=== PATIENT | male | born 1985 | race Caucasian/White ===

== ENCOUNTER 2020-07-19 20:20 | Inpatient (IN) | payer OTHER, SELFPAY ==
[~2020-07-19] VITALS: Ht 180.3 cm; Wt 125.2 kg
--- NOTE | 2020-07-19 00:36 | NUR ---
RECEIVED REPORT OVER THE PHONE FORM ARELI ER NURSE, PT IN STABLE CONDITION.
[2020-07-19 20:43] VITALS: BP 144/76
--- NOTE | 2020-07-19 20:48 | NUR ---
PT TAKEN TO BED 6
--- NOTE | 2020-07-19 20:52 | NUR ---
35 Y/O MALE CAME TO THE ED C/O EPIGASTRIC PAIN. PT STATES "I HAVE BEEN HAVING SHARP ABDOMINAL PAIN THAT RADIATES TO THE BACK OF 12/19 SINCE THIS MORNING." PT DENIES ANY NAUSEA, VOMITTING AND DIARRHEA. SKIN IS PINK/WARM/DRY; AAOX4 WITH EVEN AND STEADY GAIT; LUNGS CLEAR BL; HR EVEN AND REGULAR; PT DENIES ANY FEVER, CP, SOB, OR COUGH AT THIS TIME; VSS; PATIENT POSITIONED FOR COMFORT; HOB ELEVATED; BEDRAILS UP X2; BED DOWN. ER MD MADE AWARE OF PT STATUS. PMH: DENIES NKA
--- NOTE | 2020-07-19 22:03 | NUR ---
ERMD AT BEDSIDE EXAMINING PT
[2020-07-19] MEDS ORDERED: FAMOTIDINE 20 MG/2 ML VIAL IVP ONE (22:10)
[2020-07-19] MEDS ORDERED: KETOROLAC 15 MG/ML VIAL IVP ONE (22:10)
[2020-07-19] MEDS ORDERED: ONDANSETRON 4 MG/2 ML VIAL IVP ONE (22:10)
--- NOTE | 2020-07-19 22:19 | NUR ---
Ultrasound at bedside.
[2020-07-19 22:41] LABS: APPEARANCE,URINE CLEAR (CLEAR); BILIRUBIN,URINE 1+ (NEGATIVE); BLOOD, URINE NEGATIVE (NEGATIVE); COLOR,URINE YELLOW (YELLOW); LEUKOCYTE ESTERASE ,URINE NEGATIVE (NEGATIVE); NITRITE, URINE NEGATIVE (NEGATIVE); UGLUCOSE NEGATIVE (NEGATIVE)
[2020-07-19 22:44] LABS: BASOPHILS % (AUTO) 0.4 % (0.0-2.0); EOSINOPHILS # (AUTO) 0.1 K/uL (0-0.4); EOSINOPHILS % (AUTO) 1.5 % (0.0-4.0); HEMATOCRIT 41.9 % (36-52); HEMOGLOBIN 14.2 g/dL (12.0-18.0); LYMPHOCYTES # (AUTO) 2.1 K/uL (2.0-11.5); LYMPHOCYTES % (AUTO) 28.1 % (20.5-51.1); MEAN CORPUSCULAR HEMOGLOBIN 30 pg (27-31); MEAN CORPUSCULAR HGB CONC 34 g/dL (33-37); MEAN CORPUSCULAR VOLUME 87.5 fL (80-94); MONOCYTES # (AUTO) 0.5 K/uL (0.8-1.0); MONOCYTES % (AUTO) 6.2 % (1.7-9.3); NEUTROPHILS # (AUTO) 4.7 K/uL (1.8-7.7); NEUTROPHILS % (AUTO) 63.8 % (42.2-75.2); PLATELET COUNT (AUTO) 257 K/uL (140-450); RED BLOOD CELL COUNT(AUTO) 4.79 MIL/uL (4.20-6.10); RED CELL DISTRIBUTION WIDTH 13.6 % (11.6-13.7); WHITE BLOOD COUNT (AUTO) 7.4 K/uL (4.8-10.8)
--- NOTE | 2020-07-19 22:50 | NUR ---
EKG PERFORMED AT BEDSIDE. EKG READS SINUS RHYTHM @ 58
[2020-07-19] MEDS: NACL 0.9% 1,000 ML IV SCH (23:02)
[2020-07-19 23:03] LABS: ALBUMIN 4.2 g/dL (3.4-5.0); CARBON DIOXIDE 29.8 mmol/L (21-32); CREATININE 0.9 mg/dL (0.6-1.3); POTASSIUM 3.8 mmol/L (3.5-5.1); TOTAL BILIRUBIN 0.4 mg/dL (0.0-1.0)
[2020-07-19] MEDS ORDERED: NACL 0.9% 1,000 ML IV ONE (23:55)
[2020-07-19] MEDS ORDERED: MORPHINE SULFATE 4 MG/ML SYR IVP PRN (23:55)
[2020-07-19] MEDS ORDERED: MORPHINE SULFATE 2 MG/ML SYR IVP PRN (23:55)
[2020-07-20] MEDS: NACL 0.9% 1,000 ML IV SCH ×4 (00:20→22:07)
--- NOTE | 2020-07-20 00:59 | NUR ---
PT TRANSPORTED TO [facility] FLOOR, RM 111B IN STABLE CONDITION.
--- NOTE | 2020-07-20 01:15 | NUR ---
PT BROUGHT UP BY W/C TO ROOM 111 AND WAS ABLE TO AMBULATE TO BED B. PT IS AOX4 UPPER SORBIAN SPEAKING AND ON ROOM AIR . PT STATES HIS SKIN IS INTACT AND HE HAS NO PREVIOUS HEALTH HISTORY. HE HAS A LEFT AC 20 GUAGE INTACT AND ASYMPTOMATIC. MRSA SWAB DONE V/S FOLLOWS: T 97.7 P 63 R 18 B/P 124/71 02 98%.PT DENIES PAIN AT THIS TIME. HE WAS ORIENTED TO ROOM, BED AND REMOTE CONTROL. ALL UNIVERSAL PRECAUTIONS IN PLACE.
--- NOTE | 2020-07-20 01:30 | NUR ---
PT STARTED ON ORDERED NORMAL SALINE AT 140 MLS/HR. IV SITE ON LAC FLUSHED PATENT AND IS ASYMPTOMATIC. ALL UNIVERSAL FALLS PRECAUTIONS IN PLACE.
[2020-07-20 02:44] VITALS: BP 124/71
--- NOTE | 2020-07-20 02:51 | NUR ---
ROUNDS DONE, PT IN BED ASLEEP, ALL UNIVERSAL FALLS PRECAUTIONS IN PLACE.
--- NOTE | 2020-07-20 04:00 | NUR ---
PT IN BED AWAKE NO C/O VOICED V/S FOLLOWS: T 97 P 57 R 18 B/P 112/67 02 99% ON ROOM AIR. ALL UNIVERSAL FALLS PRECAUTIONS IN PLACE.
--- NOTE | 2020-07-20 05:00 | NUR ---
PT LYING IN BED AWAKE, HE HAS NO C/O VOICED AT THIS TIME, ALL UNIVERSAL PRECAUTIONS IN PLACE.
[2020-07-20 08:00] VITALS: BP 128/68
--- NOTE | 2020-07-20 08:02 | NUR ---
RECEIVED REPORT FORM CHOCOLATE PACKER NURSE. PATIENT ALERT AND ORIENTED X 4. PATIENT IS AWAKE AT BED RESPIRATION EVEN AND UNLABORED AT ROOM AIR. IV SITE LAC 20 G IVF NS @ 140 M/H. PT IS NPO. BED IN LOWER POSITION. CALL LIGHT WITHIN REACH. PT IS STABLE AT THIS TIME.WILL CONTINUE TO MONITOR PATIENT.
[2020-07-20] MEDS ORDERED: ZOLPIDEM 5 MG TAB PO PRN (08:05)
[2020-07-20] MEDS ORDERED: POTASSIUM CHLORIDE 10 MEQ TABER PO PRN (08:05)
[2020-07-20] MEDS ORDERED: LORazepam 2 MG/ML VIAL IM/IVP PRN (08:05)
[2020-07-20] MEDS ORDERED: MAG SULF 2000 MG/WATER PREMIX 50 ML IV PRN (08:05)
[2020-07-20] MEDS ORDERED: ONDANSETRON 4 MG/2 ML VIAL IM/IVP PRN (08:05)
[2020-07-20] MEDS ORDERED: ACETAMINOPHEN 325 MG TAB PO PRN (08:05)
[2020-07-20] MEDS ORDERED: DOCUSATE SODIUM 100 MG GELCAP PO PRN (08:05)
[2020-07-20 08:28] LABS: PROTHROMBIN TIME 9.9 secs (10.8-13.4)
--- NOTE | 2020-07-20 08:29 | NUR ---
PATIENT HAS BEEN SCREENED AND CATEGORIZED LOW NUTRITION RISK. PATIENT WILL BE SEEN WITHIN 7 DAYS OF ADMISSION. 07/26/[address]
[2020-07-20 08:40] LABS: MAGNESIUM 2.2 mg/dL (1.8-2.4); PHOSPHORUS 3.8 mg/dL (2.5-4.9); THYROID STIMULATING HORMONE 1.89 uIU/mL (0.34-3.74)
[2020-07-20] MEDS: PANTOPRAZOLE 40 MG TABEC PO SCH (09:00)
--- NOTE | 2020-07-20 09:50 | NUR ---
PT KIS OFF THE UNIT FOR A HIDA SCAN.
[2020-07-20] MEDS ORDERED: MORPHINE SULFATE 2 MG/ML SYR IVP SCH (10:45)
--- NOTE | 2020-07-20 11:46 | NUR ---
PT IS BACK TO UNIT NOW FROM HIDA SCAN.
[2020-07-20 12:00] VITALS: BP 132/88
--- NOTE | 2020-07-20 12:01 | NUR ---
PT IS BACK TO UNIT NOW FROM HIDA SCAN.VITAL SIGNS TAKEN WITHIN NORMAL LIMIT. . IVF CONFECTED PT IS IN STABLE CONDITION . WELL CONTINUE TO MONITOR PATIENT.
[2020-07-20] MEDS ORDERED: BUPIVACAINE-MPF/EPI 0.25% 30 ML VIAL INJ ONE (12:49)
[2020-07-20] MEDS ORDERED: LIDOCAINE MPF 1% 10 ML ONE (12:50)
--- NOTE | 2020-07-20 12:51 | NUR ---
DR. VINICIUS LOONEY IS IN THE PT'S ROOM OBTAINING CONSENT AND DISCUSSING RISKS AND BENEFITS. FOR SURGERY TO THE PT, PT RESPONDING APPROPRIATELY AND VERBALIZED UNDERSTANDING. CONSENT WAS SIGNED BY [PT NOW AND ATTACHED TO CHART.
--- NOTE | 2020-07-20 13:04 | NUR ---
PT IS OFF THE UNIT NOW FOR A SURGERY.
[2020-07-20] MEDS ORDERED: MEPERIDINE 25 MG/ML SYR IVP PRN (13:10)
[2020-07-20] MEDS ORDERED: diphenhydrAMINE 50 MG/ML VIAL IVP PRN (13:10)
[2020-07-20] MEDS ORDERED: ONDANSETRON 4 MG/2 ML VIAL IVP PRN (13:10)
[2020-07-20] MEDS ORDERED: LACTATED RINGERS 1,000 ML IV SCH (13:10)
[2020-07-20] MEDS ORDERED: HYDROmorphone 1 MG/ML AMP IVP PRN ×2 (13:10→14:30)
[2020-07-20] MEDS ORDERED: MIDAZOLAM 2 MG/2 ML VIAL ONE (13:20)
[2020-07-20] MEDS ORDERED: METOCLOPRAMIDE 10 MG/2 ML INJ VIAL ONE (13:20)
[2020-07-20] MEDS ORDERED: ONDANSETRON 4 MG/2 ML VIAL ONE (13:20)
[2020-07-20] MEDS: PIPERACILLIN/TAZOBACTAM 3.375 GM in DEXTROSE 5% 50 ML IV SCH ×2 (13:20→20:09)
[2020-07-20] MEDS ORDERED: GLYCOPYRROLATE 0.2 MG/ML VIAL ONE (13:20)
[2020-07-20] MEDS ORDERED: SEVOFLURANE 250 ML BTL INH ONE (13:20)
[2020-07-20] MEDS ORDERED: fentaNYL citrate 0.05 MG/ML VIAL ONE (13:20)
[2020-07-20] MEDS ORDERED: SUCCINYLCHOLINE CHLORIDE 200 MG/10 ML VIAL IVP ONE (13:20)
[2020-07-20] MEDS ORDERED: LIDOCAINE 2% 100 MG/5 ML SYR IVP ONE (13:20)
[2020-07-20] MEDS ORDERED: ROCURONIUM 50 MG/5 ML VIAL IV ONE (13:20)
[2020-07-20] MEDS ORDERED: PROPOFOL 200 MG/20 ML VIAL IV ONE (13:20)
[2020-07-20] MEDS ORDERED: DEXAMETHASONE 4 MG/ML VIAL ONE (13:20)
--- NOTE | 2020-07-20 13:20 | NUR ---
PT WAS GIVEN IVPB ZOSYN NOW.
--- NOTE | 2020-07-20 14:27 | NUR ---
LATE ENTRY -- NORMAL SALINE BOLUS COMPLETED AT [id number] 07/19/20
[2020-07-20 16:00] VITALS: BP 106/58
--- NOTE | 2020-07-20 19:25 | NUR ---
ENDORSED PT TO LENS GRINDER AND POLISHER NURSE FOR CONTINUITY OF CARE.
--- NOTE | 2020-07-20 19:26 | NUR ---
RECD. RESTING IN BED, AWAKE, A/OX4. RESPIRATION EVEN AND UNLABORED. IV OF LR INFUSING AT 120 ML/HR LEFT AC G 20. INCISION IN THE ABDOMEN (4), WITH DERMA MORGAN OPEN TO AIR, ALL DRY AND CLEAN. PUT ON BILATERAL SEQUENTIALS, TEACHING ON ITS IMPORTANCE EXPLAINED, VERBALIZED UNDERSTANDING. ADVISED EARLY AMBULATION. VOIDING WELL. MEDICATIONS AND CARE FOR THE SHIFT DISCUSSED WITH PATIENT. VERBALIZED UNDERSTANDING. VERBALIZED HE FEELS PAIN WHEN HE GETS OUT OF BED AND AMBULATE. DENIES PAIN 0/10 AT THIS TIME.
[2020-07-20 20:00] VITALS: BP 135/85
--- NOTE | 2020-07-20 21:30 | NUR ---
Patient's Plan of Care was discussed and reviewed with POWER TECHNICIAN: SHAWN GOLDEN
--- NOTE | 2020-07-20 21:50 | NUR ---
REFUSED HEPARIN. STATED "I DON'T LIKE SHOTS." EXPLAINED THE IMPORTANCE OF HEPARIN BUT STILL REFUSED. ENCOURAGED TO AMBULATE AND DON'T TAKE OF BILATERAL LEG SEQUENTIALS. VERBALIZED UNDERSTANDING.
[2020-07-20] MEDS: HYDROcodone/APAP 5/325 MG 1 TAB TAB PO PRN (21:53)
--- NOTE | 2020-07-20 23:00 | NUR ---
AMBULATED TO BR TO VOID, GAIT STEADY.
[2020-07-21] VITALS: BP 105/51
--- NOTE | 2020-07-21 01:00 | NUR ---
SLEEPING COMFORTABLY IN BED.
[2020-07-21 04:00] VITALS: BP 109/65
--- NOTE | 2020-07-21 04:00 | NUR ---
BP - 105/51, HR - 70. RESPIRATION EVEN AND UNLABORED. VS STABLE.
[2020-07-21] MEDS: HYDROcodone/APAP 5/325 MG 1 TAB TAB PO PRN (04:42)
[2020-07-21] MEDS: NACL 0.9% 1,000 ML IV SCH (04:47)
[2020-07-21] MEDS: PIPERACILLIN/TAZOBACTAM 3.375 GM in DEXTROSE 5% 50 ML IV SCH (04:48)
--- NOTE | 2020-07-21 06:00 | NUR ---
AMBULATED TWICE TO BR TO VOID. NOT PASSING GAS BUT NO ABDOMINAL DISTENTION. ENCOURAGED TO AMBULATE MORE.
[2020-07-21 06:08] LABS: BASOPHILS % (AUTO) 0.1 % (0.0-2.0); HEMATOCRIT 38.2 % (36-52); HEMOGLOBIN 12.6 g/dL (12.0-18.0); MEAN CORPUSCULAR HEMOGLOBIN 29 pg (27-31); MEAN CORPUSCULAR HGB CONC 33 g/dL (33-37); MEAN CORPUSCULAR VOLUME 88.7 fL (80-94); MONOCYTES # (AUTO) 0.5 K/uL (0.8-1.0); MONOCYTES % (AUTO) 4.6 % (1.7-9.3); NEUTROPHILS # (AUTO) 8.4 K/uL (1.8-7.7); NEUTROPHILS % (AUTO) 85.3 % (42.2-75.2); PLATELET COUNT (AUTO) 242 K/uL (140-450); RED BLOOD CELL COUNT(AUTO) 4.31 MIL/uL (4.20-6.10); RED CELL DISTRIBUTION WIDTH 13.4 % (11.6-13.7); WHITE BLOOD COUNT (AUTO) 9.9 K/uL (4.8-10.8)
[2020-07-21 06:23] LABS: ANION GAP 12.2 (8-16); CARBON DIOXIDE 24.9 mmol/L (21-32); CREATININE 0.9 mg/dL (0.6-1.3); POTASSIUM 4.1 mmol/L (3.5-5.1)
[2020-07-21 06:32] LABS: MAGNESIUM 1.9 mg/dL (1.8-2.4)
--- NOTE | 2020-07-21 07:00 | NUR ---
CONDITION REMAIN STABLE. WILL ENDORSE TO AM SHIFT NURSE FOR CONTINUITY OF CARE.
--- NOTE | 2020-07-21 07:05 | NUR ---
RECEIVED ASLEEP. NO SOB NOTED. NO SIGNS OF PAIN AT THIS TIME. IV TO LAC PATENT AND INTACT. BEB ON LOW POSITION, CALL LIGHT WITHIN REACH. NPO MAINTAINED, S/P LAP CHOLECYSTECTOMY 07/20/2020. WILL CONTINUE TO MONITOR.
[2020-07-21 08:00] VITALS: BP 124/50
[2020-07-21 08:08] LABS: T4 (THYROXINE) 6.5 ug/dL (4.5-12.0)
--- NOTE | 2020-07-21 08:30 | NUR ---
PT AWAKE, AMBULATED TO THE BATHROOM NOT PASSING GAS YET. INSTRUCTED PT TO MOVE AROUND MORE, VERBALIZED UNDERSTANDING.
[2020-07-21] MEDS ORDERED: DOCU-299 PO (09:06)
[2020-07-21] MEDS ORDERED: PANT40EC56 PO (09:06)
[2020-07-21] MEDS: PANTOPRAZOLE 40 MG TABEC PO SCH (09:34)
--- NOTE | 2020-07-21 10:10 | NUR ---
PT TOLERATED LATE BREAKFAST WELL. NO COMPLAINTS MADE. NOTED PT MOVING A LOT IN HIS ROOM AND BURPING. NOT PASSING GAS YET BUT BOWEL SOUNDS ARE ACTIVE NOW.
[2020-07-21] MEDS ORDERED: NORCO PO (11:07)
--- NOTE | 2020-07-21 12:30 | NUR ---
PT TOLERATED LUNCH WELL. NO N&V, NO C/O PAIN. DISCHARGE INSTRUCTIONS AND PRESCRIPTION GIVEN TO PT WHICH VERBALIZED FULL UNDERSTANDING OF THE TEACHINGS AND INSTRUCTIONS GIVEN AND THE NEED TO FOLLOW UP WITH DR. LOONEY WITHIN 7 DAYS. ARM BANDS AND IV REMOVED, CANNULA TIP INTACT. PT WAITING FOR HIS TO PICK HIM UP.
--- NOTE | 2020-07-21 12:35 | NUR ---
PT ESCORTED TO THE FRONT LOBBY IN STABLE CONDITION, AMBULATORY, NO SOB NOTED. NO C/O PAIN. PT IS DISCHARGE HOMNE WITH .
== END 2020-07-21 12:30 | disposition home or self-care (01) | DRG 419 ==
LOC: MED 20:20 → MTU 07-20
PROC: 0FT44ZZ Resection of Gallbladder, Percutaneous Endoscopic Approach (ICD-10-PCS; principal; 2020-07-20 13:00)
DX: K80.00 Calculus of gallbladder with acute cholecystitis without obstruction (principal); Z20.822 Contact with and (suspected) exposure to COVID-19; E86.0 Dehydration; E66.9 Obesity, unspecified; E78.5 Hyperlipidemia, unspecified; Z68.38 Body mass index [BMI] 38.0-38.9, adult
CPT/HCPCS: 36415; 76705; 78445; 80048; 80053; 81003; 83036; 83690; 83735; 83880; 84100; 84134; 84436; 84443; 84484; 85025; 85610; 85730; 87081; 88304; 93005; 96360; 96361; 96365; 96375; 99285; A9510; J0330; J0694; J1100; J1644; J1885; J2001; J2175; J2250; J2270; J2405; J2543; J2704; J2765; J3010; J3490; J7060